=== PATIENT | female | born 1990 | race Caucasian/White ===

== ENCOUNTER 2019-07-12 22:05 | Inpatient (IN) | payer BC, OTHER ==
[2019-07-12] MEDS ORDERED: DEXTROSE 5%-LACTATED RINGERS 1,000 ML IV SCH (22:55)
[2019-07-12] MEDS ORDERED: OXYTOCIN 10 UNITS/ML VIAL ONE (22:59)
[2019-07-12] MEDS ORDERED: LIDOCAINE HCL 1% PRESERVATIVE FREE - 30ML VIAL ONE (23:00)
[2019-07-12] MEDS ORDERED: BENZOCAINE 28 GM HEMORRHOIDAL OINTMENT TP PRN (23:23)
[2019-07-12] MEDS ORDERED: BENZOCAINE 20% 57 GM BOTTLE TP PRN (23:23)
[2019-07-12] MEDS ORDERED: BISACODYL 10 MG SUPP.RECT RC PRN (23:23)
[2019-07-12] MEDS ORDERED: IBUPROFEN 600 MG TABLET (FP) PO PRN (23:23)
[2019-07-12] MEDS ORDERED: WITCH HAZEL 50% (TUCKS) 40 PAD/JAR PAD TP PRN (23:23)
[2019-07-12] MEDS ORDERED: ACETAMINOPHEN 325 MG TABLET (FP) PO PRN (23:23)
[2019-07-12] MEDS ORDERED: METHYLERGONOVINE MALEATE 0.2 MG/1 ML AMP IM PRN (23:23)
--- NOTE | 2019-07-12 23:23 | PN ---
Delivery - Delivery Vaginal Delivery: No Problems Type of Anesthesia: Local Episiotomy/Laceration: Midline, 1st degree EBL (cc): 200 Delivery, Single - Stages of Labor Date 1st Stage Initiatied: 07/12/19 Time 1st Stage Initiated: 17:00 Date 2nd Stage Initiated: 07/12/19 Time 2nd Stage Initiated: 21:00 Date of Delivery: 07/12/19 Time of Delivery: 22:58 Date Placenta Delivered: 07/12/19 Time Placenta Delivered: 23:00 Placenta: Yes: Spontaneous - Condition of Infant Cert Occupational Therapy Asst/Threat Analyst Present: No Infant Gender: Female Weight: 5 lb 14 oz Position: Left, OA - 1 Minute Total Score: 9 5 Minutes Total Score: 9 - Feeding Plan Benefits of Exclusively reinforced: Yes Remarks - Remarks Remarks: patient pushed and delivered viable female cord around the neck x 1 head, shoulders and body delivered aromatically all in 2 pushes Cord clamped and cut placed on mothers abdomen
--- NOTE | 2019-07-12 23:23 | HP ---
Past Medical History - Primary Care Physician PCP:: Brea Gates - Admission Chief Complaint: 29yo P2 @ 37.3wks with regular contructions History of Present Illness: 1. Hypothyroid - Synthroid 150mcg 2. h/o Seizure, last 10 years ago, not on meds 3. Declined Genetic screen 4. Obese - early GCT neg 5. 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) ...: 3 ...Para: 2 ( x 2) Endocrine: Yes: Hypothyroidism - Past Surgical History Past Surgical History: Yes: Cholecystectomy Hx Myomectomy: No Hx Transabdominal Cerclage: No - Smoking History Have you smoked in the past 12 months: No - Alcohol/Substance Use Hx Alcohol Use: No History of Substance Use: reports: None - Social History Usual Living Arrangement: Yes: With Spouse History of Recent Travel: No Home Medications - Allergies Allergies/Adverse Reactions: Allergies Allergy/AdvReac Type Severity Reaction Status Date / Time No Known Allergies Allergy Verified 07/13/19 00:33 - Home Medications Home Medications: Ambulatory Orders Oseltamivir Phosphate [Tamiflu -] 75 mg PO BID #10 capsule 12/04/13 Pnv 29-1 Tablet 1 tab PO DAILY 07/13/19 Synthroid 150 mcg PO DAILY 07/13/19 Review of Systems - Review of Systems Constitutional: reports: No Symptoms Eyes: reports: No Symptoms HENT: reports: No Symptoms Neck: reports: No Symptoms Cardiovascular: reports: No Symptoms Respiratory: reports: No Symptoms Gastrointestinal: reports: No Symptoms Genitourinary: reports: Other (presented fully dialated with ROM) Breasts: reports: No Symptoms Reported Musculoskeletal: reports: No Symptoms Integumentary: reports: No Symptoms Neurological: reports: No Symptoms Endocrine: reports: No Symptoms Hematology/Lymphatic: reports: No Symptoms Psychiatric: reports: No Symptoms Physical Exam - Maternity Constitutional: Yes: Well Nourished, No Distress, Calm Eyes: Yes: WNL, Conjunctiva Clear, EOM Intact HENT: Yes: WNL, Atraumatic, Normocephalic Neck: Yes: WNL, Supple, Trachea Midline Cardiovascular: Yes: WNL, Regular Rate and Rhythm Lungs: Clear to auscultation Breast(s): Yes: WNL - Abdominal Exam/OB Fundal Height: 39 Number of Fetuses: Single Presentation: Vertex Contractions: Yes Regularity: Regular Intensity: Mod/Strong Monitor Mode: External Heart Rate (range): 140 Heart Rate Location: Midline Category: I Accelerations: Uniform Decelerations: None - Vaginal Exam/OB Vaginal Bleediing: No Speculum Exam: No Dilatation (cm): FD Effacement (%): 100 Amniotic Membrane Status: Ruptured Amniotic Fluid: Yes: Clear Presentation: Vertex/Position Station: -2 - Physical Exam Musculoskeletal: Yes: WNL Extremities: Yes: WNL Edema: No Integumentary: Yes: WNL ...Motor Strength: WNL Psychiatric: Yes: WNL, Alert, Oriented Assessment/Plan 29yo P2 @ 37wks in second stage of labor Admit to L&D IVF, Labs MF Status reasuring Start pushing anticipate
[2019-07-12 23:50] LABS: BASO % 0.4 % (0-2.0); EOS % 1.2 % (0-4.5); HEMATOCRIT 35.1 % (32.4-45.2); HEMOGLOBIN 11.7 GM/dL (10.7-15.3); LYMPH % 17.4 % (8-40); MCH 31.2 pg (25.7-33.7); MCHC 33.3 g/dl (32.0-36.0); MEAN CELL VOLUME 93.8 fl (80-96); MEAN PLT VOLUME 8.4 fl (7.5-11.1); MONO % 6.3 % (3.8-10.2); NEUT % 74.7 % (42.8-82.8); PLATELET COUNT 277 K/MM3 (134-434); RBC 3.74 M/mm3 (3.60-5.2); WHITE BLOOD COUNT 10.1 K/mm3 (4.0-10.0)
[2019-07-13 00:02] LABS: INR 0.92 (0.83-1.09); PROTHROMBIN TIME (PATIENT) 10.8 SEC (9.7-13.0)
[2019-07-13 00:05] LABS: ACTIVATED PTT 26.4 SECONDS (25.2-36.5)
[2019-07-13 00:16] VITALS: BMI 43.0
[2019-07-13 00:16] LABS: BLOOD UREA NITROGEN 12.2 mg/dL (7-18); CALCIUM 8.7 mg/dL (8.5-10.1); CREATININE 0.7 mg/dL (0.55-1.3); POTASSIUM 4.2 mmol/L (3.5-5.1)
[2019-07-13] MEDS ORDERED: OXYTOCIN 20 UNITS in 0.9% NS 20 UNIT/1,000 ML INFUS.BAG IV ONE (00:25)
[2019-07-13] MEDS ORDERED: OXYTOCIN 20 UNITS in 0.9% NS 20 UNIT/1,000 ML INFUS.BAG IV SCH (01:30)
[2019-07-13] MEDS: LEVOTHYROXINE NA 150 MCG TABLET PO SCH (06:25)
--- NOTE | 2019-07-13 07:20 | PN ---
Post Progress Note - Subjective Subjective: Patient without acute complaints. Reports tolerating oral intake without nausea or vomiting. Ambulating without dizziness. Denies fevers or chills. Pain well controlled with oral pain medication. without difficulty. Passing flatus. Post Day: 1 Type of Delivery: Vital Signs: Vital Signs Temperature 98.3 F 07/13/19 05:53 Pulse Rate 79 07/13/19 05:53 Respiratory Rate 18 07/13/19 05:53 Blood Pressure 125/61 07/13/19 05:53 O2 Sat by Pulse Oximetry (%) Breast Exam: Yes: Soft Uterus: Yes: Fundus Firm Abdomen/GI: Yes: Abdomen soft, Passing flatus Lochia: Yes: Rubra Lochia, amount: Small Extremities: Yes: Calves non-tender Perineum: Yes: Intact Activity: Ambulating - Labs Labs: CBC WBC 10.1 K/mm3 (4.0-10.0) H 07/12/19 23:40 RBC 3.74 M/mm3 (3.60-5.2) 07/12/19 23:40 Hgb 11.7 GM/dL (10.7-15.3) 07/12/19 23:40 Hct 35.1 % (32.4-45.2) 07/12/19 23:40 MCV 93.8 fl (80-96) 07/12/19 23:40 MCH 31.2 pg (25.7-33.7) 07/12/19 23:40 MCHC 33.3 g/dl (32.0-36.0) 07/12/19 23:40 RDW 14.0 % (11.6-15.6) 07/12/19 23:40 Plt Count 277 K/MM3 (134-434) 07/12/19 23:40 MPV 8.4 fl (7.5-11.1) 07/12/19 23:40 Absolute Neuts (auto) 7.6 K/mm3 (1.5-8.0) 07/12/19 23:40 Neutrophils % 74.7 % (42.8-82.8) 07/12/19 23:40 Lymphocytes % 17.4 % (8-40) 07/12/19 23:40 Monocytes % 6.3 % (3.8-10.2) 07/12/19 23:40 Eosinophils % 1.2 % (0-4.5) 07/12/19 23:40 Basophils % 0.4 % (0-2.0) 07/12/19 23:40 Nucleated RBC % 0 % (0-0) 07/12/19 23:40 Assessment/Plan 29yo P3 s/p VSS, Afebrile PPD # 1 Doing well follow CBC Routine PP care
[2019-07-13 08:08] LABS: BASO % 0.4 % (0-2.0); EOS % 1.1 % (0-4.5); HEMATOCRIT 32.1 % (32.4-45.2); HEMOGLOBIN 10.8 GM/dL (10.7-15.3); LYMPH % 14.7 % (8-40); MCH 31.3 pg (25.7-33.7); MCHC 33.7 g/dl (32.0-36.0); MEAN PLT VOLUME 8.2 fl (7.5-11.1); MONO % 6.2 % (3.8-10.2); NEUT % 77.6 % (42.8-82.8); PLATELET COUNT 227 K/MM3 (134-434); RBC 3.46 M/mm3 (3.60-5.2); RDW 13.7 % (11.6-15.6); WHITE BLOOD COUNT 11.6 K/mm3 (4.0-10.0)
[2019-07-13] MEDS: FERROUS SO4 325 MG TABLET (FP) PO SCH ×2 (09:52→21:53)
[2019-07-13] MEDS: PRENATAL VITAMINS W/ FOLIC ACID TABLET (FP) PO SCH (09:52)
[2019-07-13] MEDS ORDERED: SENNOSIDES/DOCUSATE COMBO (SENNA PLUS) TABLET (UD) PO PRN (22:00)
[2019-07-14] MEDS: LEVOTHYROXINE NA 150 MCG TABLET PO SCH (06:12)
[2019-07-14] MEDS ORDERED: FLU VACC QS2019-20(6MOS UP)/PF 60 MCG/0.5 ML SYRINGE IM ONE (08:00)
--- NOTE | 2019-07-14 08:11 | PN ---
Post Progress Note - Subjective Subjective: Patient without acute complaints. Reports tolerating oral intake without nausea or vomiting. Ambulating without dizziness. Denies fevers or chills. Pain well controlled with oral pain medication. Pumping/breast feeding without issue. Passing flatus, no BM. Post Day: 2 Type of Delivery: Vital Signs: Vital Signs Temperature 97.8 F 07/13/19 22:00 Pulse Rate 70 07/13/19 22:00 Respiratory Rate 18 07/13/19 22:00 Blood Pressure 89/44 L 07/13/19 22:00 O2 Sat by Pulse Oximetry (%) Breast Exam: Yes: Soft Uterus: Yes: Fundus Firm, Fundus below umbilicus, Non-tender Abdomen/GI: Yes: Abdomen soft, Passing flatus, Tolerating PO Lochia: Yes: Rubra Lochia, amount: Small Extremities: Yes: Calves non-tender Perineum: Yes: Intact Activity: Ambulating - Labs Labs: CBC WBC 11.6 K/mm3 (4.0-10.0) H 07/13/19 07:40 RBC 3.46 M/mm3 (3.60-5.2) L 07/13/19 07:40 Hgb 10.8 GM/dL (10.7-15.3) 07/13/19 07:40 Hct 32.1 % (32.4-45.2) L 07/13/19 07:40 MCV 93.0 fl (80-96) 07/13/19 07:40 MCH 31.3 pg (25.7-33.7) 07/13/19 07:40 MCHC 33.7 g/dl (32.0-36.0) 07/13/19 07:40 RDW 13.7 % (11.6-15.6) 07/13/19 07:40 Plt Count 227 K/MM3 (134-434) 07/13/19 07:40 MPV 8.2 fl (7.5-11.1) 07/13/19 07:40 Absolute Neuts (auto) 9.0 K/mm3 (1.5-8.0) H 07/13/19 07:40 Neutrophils % 77.6 % (42.8-82.8) 07/13/19 07:40 Lymphocytes % 14.7 % (8-40) 07/13/19 07:40 Monocytes % 6.2 % (3.8-10.2) 07/13/19 07:40 Eosinophils % 1.1 % (0-4.5) 07/13/19 07:40 Basophils % 0.4 % (0-2.0) 07/13/19 07:40 Nucleated RBC % 0 % (0-0) 07/13/19 07:40 Assessment/Plan 29yo female s/p , doing well stable, afebrile. Asymptomatic for anemia. care instructions reviewed. Continue routine care. Ambulation encouraged Discharge instruction reviewed.
--- NOTE | 2019-07-14 08:14 | DS ---
Physical Exam-LOCK TECHNICIAN Vital Signs: Vital Signs Temperature 97.8 F 07/13/19 22:00 Pulse Rate 70 07/13/19 22:00 Respiratory Rate 18 07/13/19 22:00 Blood Pressure 89/44 L 07/13/19 22:00 O2 Sat by Pulse Oximetry (%) Constitutional: Yes: Well Nourished, No Distress, Calm Eyes: Yes: WNL, Conjunctiva Clear HENT: Yes: WNL, Atraumatic, Normocephalic Neck: Yes: WNL, Supple, Trachea Midline Cardiovascular: Yes: WNL Respiratory: Yes: WNL, Regular, CTA Bilaterally Gastrointestinal: Yes: WNL, Normal Bowel Sounds, Soft ...Rectal Exam: Yes: Deferred Renal/: Yes: WNL Internal Exam Deferred: Yes ....Post : Yes: Uterus firm, Uterus non-tender, Slight lochia rubra Breast(s): Yes: WNL Musculoskeletal: Yes: WNL Extremities: Yes: WNL Edema: Yes Edema: LLE: Trace, RLE: Trace Integumentary: Yes: WNL Neurological: Yes: WNL, Alert, Oriented ...Motor Strength: WNL Psychiatric: Yes: WNL, Alert, Oriented Labs: CBC, BMP 07/13/19 07:40 07/12/19 23:40 Delivery - Delivery Vaginal Delivery: No Problems, Spontaneous Type of Anesthesia: Local Episiotomy/Laceration: Midline, 1st degree EBL (cc): 200 Delivery, Single - Stages of Labor Date 1st Stage Initiatied: 07/12/19 Time 1st Stage Initiated: 17:00 Date 2nd Stage Initiated: 07/12/19 Time 2nd Stage Initiated: 21:00 Date of Delivery: 07/12/19 Time of Delivery: 22:58 Time Placenta Delivered: 23:00 Placenta: Yes: Spontaneous - Condition of Labor Operator/Director Of Guidance Present: No Infant Gender: Female Weight: 2.665 kg Position: Left, OA Total Hours ROM (Hrs/Mins): 1 HOUR/ 58MINUTES - 1 Minute Total Score: 9 5 Minutes Total Score: 9 - [place] Feeding Plan Initial Plan: Elected not to breastfeed exclusively throughout hospitalization Benefits of Exclusively reinforced: Yes Discharge Summary Problems reviewed: Yes Reason For Visit: LABOR Spont labor Procedures: Principal: Hospital Course: Normal recovery Condition: Good - Instructions Diet, Activity, Other Instructions: Physical activity Resume your normal everyday activity as tolerated no heavy lifting or exercise until seen by your surgeon. You may walk unlimited anders of and climb stairs. You may resume driving the car when you feel safe and comfortable behind the wheel. No sexual activity as instructed. Wound care If you have a bandage, leave it on, and keep dry for 48-72 hours. After that time discard the outer bandage. If they are tapes on the skin under the out of bandage leave them in place. They will peel off in the next 7 to 10 days. Do Not Peel them off. You may shower the day after surgery. If there are tapes present on the skin, you may shower over them. Diet There are no dietary restrictions. Eat healthy, high-fiber foods. Drink 6 to 8 glasses of liquid each day. This will assist in keeping your bowels are regular. Pain management You may take Tylenol or acetaminophen or Ibuprofen (for example, Motrin, Advil etc.) from my pain prescription medication is ordered should be taken as prescribed for moderate to severe pain. Call MD for any of the following: Severe pain not relieved by medication Fever of 101 or higher Excessive bleeding or drainage on dressing Inability to urinate Disposition: HOME - Home Medications Comprehensive Discharge Medication List: Ambulatory Orders Oseltamivir Phosphate [Tamiflu -] 75 mg PO BID #10 capsule 12/04/13 Pnv 29-1 Tablet 1 tab PO DAILY 07/13/19 Synthroid 150 mcg PO DAILY 07/13/19 Prescription Drug Monitoring Program (I-STOP) results: I-STOP not reviewed
[2019-07-14] MEDS: PRENATAL VITAMINS W/ FOLIC ACID TABLET (FP) PO SCH (09:31)
[2019-07-14] MEDS: FERROUS SO4 325 MG TABLET (FP) PO SCH (09:31)
[2019-07-14] MEDS ORDERED: FLU VACCINE QUAD 60 MCG/0.5 ML (MDV 19-20) IM ONE (10:00)
[2019-07-14 10:39] VITALS: BP 125/77; PULSE 82; TEMP 98.3
== END 2019-07-14 12:30 | disposition home or self-care (01) | DRG 807 ==
LOC: JDEL 22:05 → JLDR 23:04 → J3W 07-13 01:45
PROVIDERS: ADMIT Obstetrics & Gynecology; ATTEND Obstetrics & Gynecology
PROC: 0HQ9XZZ Repair Perineum Skin, External Approach (ICD-10-PCS; principal; 2019-07-12)
PROC: 10E0XZZ Delivery of Products of Conception, External Approach (ICD-10-PCS; 2019-07-12)
DX: O69.81X0 Labor and delivery complicated by cord around neck, without compression, not applicable or unspecified (principal); Z37.0 Single live birth; O70.0 First degree perineal laceration during delivery; Z3A.37 37 weeks gestation of pregnancy
CPT/HCPCS: 36415; 36600; 59409; 80048; 82803; 85025; 85610; 85730; 86593; 86850; 86900; 86901; 90686